=== PATIENT | female | born 1995 | race African-American/Black ===

== ENCOUNTER 2016-04-24 23:23 | Emergency (ER) | payer OTHER ==
[~2016-04-24] VITALS: Ht 165.1 cm; Wt 64.4 kg
--- NOTE | ~2016-04-24 | EKG ---
[place] [address] [facility] [place] [address] ELECTROCARDIOGRAM REPORT Name: OLINDA SPARROW Room #: [id number] Admission: 04/24/16 Attend Phys: Discharge: 04/25/16 Date of : [birth year] Report #: [id number] THIS REPORT FOR: //name// [facility] ED Test Date: 2016-04-24 Test Time: 23:30:06 Pat Name: OLINDA SPARROW Department: Room: Gender: F [employer] Fe[employer]: SHREYA : 1995 Requested By: Ed Richardson Order Number: [id number] MD: Cristobal Sparks Measurements Intervals [place] Rate: 84 P: 34 AR: 165 QRS: 44 QRSD: 71 T: 29 QT: 348 QTc: 412 Interpretive Statements Sinus rhythm No significant abnormality No previous ECG available for comparison Electronically Signed On 04-26-2016 14:12:09 PULMONARY PHYSICIAN by Cristobal Sparks [email or web address] <ELECTRONICALLY SIGNED> By: Cristobal Sparks MD, [facility] 04/26/16 1412 2330 2330 Cristobal Sparks MD, FACC /EPI
[~2016-04-24 23:23] MED LIST: DIFLUCAN150 MG PO; ERYTHROMYCIN E3.5 G3 OPHTHALMIC; PROAIR RESPICL90 MCG IH; PROMETHAZINE/C118 ML PO
[2016-04-24 23:24] VITALS: BP 119/67
[2016-04-24] MEDS ORDERED: MOBIC15 MG PO (23:42)
[2016-06-13] MEDS ORDERED: ADVAIR 250-501 EACH INH (13:06)
[2016-06-13] MEDS ORDERED: NAPROSYN500 MG PO (14:31)
== END 2016-04-25 00:11 | disposition home or self-care (01) ==
LOC: ER 23:23
DX: R07.89 Other chest pain (principal); M94.0 Chondrocostal junction syndrome [Tietze]; J45.909 Unspecified asthma, uncomplicated; Z88.1 Allergy status to other antibiotic agents; Z88.3 Allergy status to other anti-infective agents

== ENCOUNTER 2016-10-28 08:29 | Emergency (ER) | payer OTHER ==
[~2016-10-28] VITALS: Ht 165.1 cm; Wt 66.7 kg
[~2016-10-28 08:29] MED LIST changes: +ADVAIR 250-501 EACH INH; +MOBIC15 MG PO; +NAPROSYN500 MG PO
[2016-10-28 08:30] VITALS: BP 114/71
[2016-10-28] MEDS ORDERED: TRINATE TABLET1 TAB PO (08:42)
== END 2016-10-28 09:06 | disposition home or self-care (01) ==
LOC: ER 08:29
DX: O26.891 Other specified pregnancy related conditions, first trimester (principal); Z3A.09 9 weeks gestation of pregnancy; J02.8 Acute pharyngitis due to other specified organisms; J45.909 Unspecified asthma, uncomplicated; Z88.8 Allergy status to other drugs, medicaments and biological substances